=== PATIENT | female | born 1970 | race Caucasian/White ===

== ENCOUNTER 2018-06-30 22:33 | Emergency (ER) | payer MEDICAID ==
[~2018-06-30] VITALS: Ht 154.9 cm; Wt 90.7 kg
[2018-06-30 23:01] VITALS: Ht 154.9 cm; Wt 90.7 kg
[2018-07-01 01:17] VITALS: BP 124/77
== END 2018-07-01 01:17 | disposition home or self-care (01) ==
LOC: ED 22:33
DX: S16.1XXA Strain of muscle, fascia and tendon at neck level, initial encounter (principal); S39.012A Strain of muscle, fascia and tendon of lower back, initial encounter; M54.16 Radiculopathy, lumbar region; M79.18 Myalgia, other site; V49.88XA Car occupant (driver) (passenger) injured in other specified transport accidents, initial encounter; Y93.89 Activity, other specified; Y92.413 State road as the place of occurrence of the external cause; Y99.9 Unspecified external cause status
CPT/HCPCS: J1885

== ENCOUNTER 2018-11-17 21:23 | Emergency (ER) | payer MEDICAID ==
[~2018-11-17] VITALS: Ht 154.9 cm; Wt 97.1 kg
[2018-11-17 23:03] VITALS: BP 129/78
== END 2018-11-17 23:03 | disposition home or self-care (01) ==
LOC: ED 21:23
DX: M43.6 Torticollis (principal); R42 Dizziness and giddiness; R11.10 Vomiting, unspecified

== ENCOUNTER 2019-04-02 12:39 | Emergency (ER) | payer OTHER ==
[~2019-04-02] VITALS: Ht 154.9 cm; Wt 93.4 kg
[2019-04-02 13:19] VITALS: Ht 154.9 cm; Wt 93.4 kg
[2019-04-02 14:40] VITALS: BP 114/76
[2019-04-02 14:46] LABS: CALCIUM 8.7 mg/dL (8.5-10.1); CARBON DIOXIDE 21.5 mmol/L (21-32); CHLORIDE SERUM 105 mmol/L (98-107); CREATININE SERUM 0.8 mg/dL (0.6-1.0); GFR1 > 60 mL/min; GLUCOSE SERUM 120 mg/dL (74-106); POTASSIUM SERUM 4.1 mmol/L (3.5-5.1); SODIUM SERUM 138 mmol/L (136-145)
[2019-04-02 14:50] LABS: ALBUMIN 3.5 g/dL (3.4-5.0); ALKALINE PHOSPHATASE 75 U/L (46-116); ALT/SGPT 25 U/L (14-59); AMYLASE 56 U/L (25-115); AST/SGOT 10 U/L (15-37); BILIRUBIN TOTAL 0.2 mg/dL (0.20-1.00); LIPASE 260 IU/L (73-393); TOTAL PROTEIN, SERUM 7.2 g/dL (6.4-8.2)
[2019-04-02 14:52] LABS: BASOPHIL % 0.6 % (0-2); PLATELET COUNT 323 x10^3mcL (130-400); RED CELL DISTRIBUTION WIDTH 13.3 % (11.5-14.5)
== END 2019-04-02 16:00 | disposition home or self-care (01) ==
LOC: ED 12:39
PROVIDERS: Emergency Medicine
DX: R10.9 Unspecified abdominal pain (principal); Z90.49 Acquired absence of other specified parts of digestive tract
CPT/HCPCS: 36415; J3010